=== PATIENT | male | born 1975 | race Caucasian/White ===

== ENCOUNTER 2023-12-29 17:54 | Observation (INO) | payer OTHER, SELFPAY ==
[2023-12-29] VITALS (10 sets, daily range): BP systolic 138–154; BP diastolic 91–101; PULSE 62–90; RESP 16–20; TEMP 36.2–36.9; O2SAT 94–98; BMI 24.2
--- NOTE | 2023-12-29 | CRLHL7_ITS ---
For Patients: As a result of the Cures Act, medical imaging exams and procedure reports are released immediately into your electronic medical record. You may view this report before your referring provider. If you have questions, please contact your health care provider. Indication: FALL, FACIAL TRAUMA Technique: Helical axial sections were obtained through the facial skeleton, mandible and adjacent structures without intravenous contrast material. Comparison: None Findings: No fracture is demonstrated in the facial skeleton or mandible. Mild right forehead scalp contusion. The orbits and their contents are normal in appearance. There is no evidence for penetrating injury to the ocular globes. The lenses are situated in their normally expected anterior locations. No radiodense or metallic foreign body is demonstrated. Air-fluid level in the right frontal sinus. Mild mucosal thickening in the right anterior ethmoid air cells. Mild polypoid mucosal thickening in the maxillary sinuses. Leftward deviation of the nasal septum. The visualized portions of the brain are normal in appearance. Impression: 1. No facial bone fractures. 2. Air-fluid level in the right frontal sinus could represent acute sinusitis. Mild mucosal thickening in the right anterior ethmoid air cells and polypoid mucosal thickening in the maxillary sinuses. Leftward deviation of the nasal septum. 3. Mild right forehead scalp contusion. Please note that all CT scans at this facility use dose modulation, iterative reconstruction, and/or weight-based dosing when appropriate to reduce radiation dose to as low as reasonably achievable. Dictated by Chris Taylor MD @ 12/29/2023 7:05:11 PM (Electronically Signed)
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
--- NOTE | 2023-12-29 18:08 | CRLHL7_ITS ---
For Patients: As a result of the Century Cures Act, medical imaging exams and procedure reports are released immediately into your electronic medical record. You may view this report before your referring provider. If you have questions, please contact your health care provider. Indication: FALL, NECK PAIN Technique: Noncontrast axial CT of the cervical spine with coronal and sagittal reformats are provided. Comparison: No prior studies available for comparison at this institution. Findings: The overall stature, alignment of the cervical spine is within normal limits. No fractures. Prevertebral soft tissues, cervical airway, dens and lateral masses are within normal limits. Mild scattered degenerative changes of the cervical spine. Shallow disc osteophyte complex and severe interspace narrowing at C5-6 with uncovertebral joint hypertrophy. Severe left and moderate right neural foraminal narrowing at C5-6. Uncovertebral joint hypertrophy at C3-4 on the right side. Advanced right facet arthrosis at C3-4 and C4-5. Moderate facet arthrosis at C5-6 bilaterally. Impression: 1. No convincing radiographic evidence of acute osseous injury. 2. Scattered degenerative changes of the cervical spine. Please note that all CT scans at this facility use dose modulation, iterative reconstruction, and/or weight-based dosing when appropriate to reduce radiation dose to as low as reasonably achievable. Dictated by Chris Taylor MD @ 12/29/2023 7:01:08 PM (Electronically Signed)
--- NOTE | 2023-12-29 18:08 | CRLHL7_ITS ---
For Patients: As a result of the Century Cures Act, medical imaging exams and procedure reports are released immediately into your electronic medical record. You may view this report before your referring provider. If you have questions, please contact your health care provider. Indication: FALL, FACIAL TRAUMA Technique: CT of the head without contrast. Coronal and sagittal reformats. Bone and soft tissue windows. Comparison: No prior studies available for comparison at this institution. Findings: No acute intracranial hemorrhage or extra-axial collection. No evidence of acute cortical infarction. No mass effect or midline shift. Normal cerebral volume. The ventricles are normal in size, shape and contour. There is normal ely and white matter differentiation. The orbital contents are normal. No calvarial fractures. No lytic or sclerotic osseous lesions within the calvarium or skull base. Small right forehead scalp contusion. Mastoid air cells are clear. Paranasal sinuses are well aerated. Small air-fluid level in the right frontal sinus. Impression: No acute intracranial abnormality. Please note that all CT scans at this facility use dose modulation, iterative reconstruction, and/or weight-based dosing when appropriate to reduce radiation dose to as low as reasonably achievable. Dictated by Chris Taylor MD @ 12/29/2023 6:57:46 PM (Electronically Signed)
--- NOTE | 2023-12-29 18:09 | CRLHL7_ITS ---
For Patients: As a result of the Century Cures Act, medical imaging exams and procedure reports are released immediately into your electronic medical record. You may view this report before your referring provider. If you have questions, please contact your health care provider. INDICATION: Facial, chest, and clavicle pain after a fall COMPARISON: None. TECHNIQUE: CT of the chest, abdomen, and pelvis with intravenous contrast (79 milliliters Isovue 370). FINDINGS: THORAX: Airways: The trachea and central airways are clear. Lungs: No mass or consolidation. There are several subcentimeter pulmonary nodules largest of which is a 4 millimeter solid right upper lobe nodule (6/29). Pleura: No effusion. Lymph nodes: No bulky thoracic lymphadenopathy. Heart: Normal size. Aorta: Normal caliber. Pulmonary artery: Normal caliber of the main pulmonary artery. Chest wall: Normal. Bones: There are osseous degenerative changes. There is partial ankylosis of T8 and T9 as well as partial ankylosis T10 and T11. There is mild anterior vertebral body wedging centered at T8 and T9. ABDOMEN AND PELVIS: Liver: Smooth hepatic contour. There are 2 cysts in the liver measuring up to 17 millimeters. Gallbladder and biliary tree: Unremarkable CT appearance. Spleen: No splenomegaly. Pancreas: Normal. Adrenal glands: Normal. 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 No hydronephrosis of the right upper pole moiety. There is mild hydronephrosis of the right lower pole moiety. No left-sided hydronephrosis. Left upper renal pole 14 millimeter hypoattenuating indeterminate lesion (5/162). There are a few small left renal subcentimeter hypoattenuating foci which are too small to characterize, but statistically likely to represent cysts. Bladder: Unremarkable CT appearance. Visualized reproductive organs: Unremarkable CT appearance. Gastrointestinal tract: No focal abnormally dilated loops of bowel. Peritoneal cavity: No free fluid or free air. Lymph nodes: No enlarged abdominal or pelvic lymph nodes by CT size criteria. Vessels: No abdominal aortic aneurysm. Abdominal and pelvic wall: Tiny fat containing umbilical hernia. Bones: There are osseous degenerative changes. IMPRESSION: CHEST: 1. No definite acute traumatic findings. 2. Mild anterior vertebral body wedging from T8-T11 which is age indeterminate and may be chronic. Correlate with physical exam. Partial ankylosis of T8-9 and T10-11. 3. Several subcentimeter pulmonary nodules, the largest of which is a 4 millimeter solid right upper lobe nodule. A follow-up low-dose noncontrast CT of the thorax could be considered in 1 year for incidental nodules of this size if patient is considered at high risk of lung cancer. ABDOMEN AND PELVIS: 1. No acute traumatic findings. 2. 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 3. Left upper renal pole 14 millimeter hypoattenuating renal lesion is indeterminate (5/162). Recommend renal ultrasound to further characterize. Please note that all CT scans at this facility use dose modulation, iterative reconstruction, and/or weight-based dosing when appropriate to reduce radiation dose to as low as reasonably achievable. Dictated by Jonas Brown MD @ 12/29/2023 7:12:49 PM (Electronically Signed)
--- NOTE | 2023-12-29 18:15 | ED.NURSE ---
Documentation continued in the EMR at this time. TTA record completed and signed.
[2023-12-29 18:32] LABS: Basophils Absolute Auto 0.03 K/uL (0.00-0.30); Basophils Percent Auto 0.4 % (0.0-3.0); Eosinophils Absolute Auto 0.05 K/uL (0.00-0.50); Eosinophils Percent Auto 0.7 % (0.0-7.0); Hematocrit 49.7 % (37.0-53.0); Hemoglobin* 17.4 gm/dL (13.5-17.5); Immature Granulocytes Abs Auto 0.07 K/uL (0.00-0.30); Immature Granulocytes Pct Auto 0.9 %; Lymphocytes Absolute Auto 1.58 K/uL (0.90-2.90); Lymphocytes Percent Auto 20.5 % (20-44); Mean Corpuscular HGB Conc 35 gm/dL (32-36); Mean Corpuscular Hemoglobin 35 pg (26-34); Mean Corpuscular Volume 100 fL (80-100); Monocytes Percent Auto 10.8 % (0.0-11.0); Neutrophils Absolute Auto 5.13 K/uL (1.7-7.0); Neutrophils Percent Auto 66.7 % (42.0-72.0); Platelet Count* 267 K/uL (140-440); RDW Coefficient of Variation % 12.2 % (11.5-15.5); Red Blood Count 4.97 m/uL (4.30-5.90); White Blood Count* 7.69 K/uL (4.50-11.00)
[2023-12-29 18:35] LABS: Slide Review Reflex No
[2023-12-29 18:52] LABS: Chloride* 100 mmol/L (96-114)
[2023-12-29 18:53] LABS: Albumin* 5.1 g/dL (3.3-5.0); Potassium* 3.4 mmol/L (3.6-5.1); Sodium* 136 mmol/L (135-149)
[2023-12-29] MEDS: ONDANSETRON 2 MG/ML inj 4 MG IVP (18:53)
[2023-12-29] MEDS: MORPHINE 4 MG/ML INJ IVP (18:53)
[2023-12-29 18:56] LABS: Alanine Aminotransferase* 103 U/L (4-50); Alkaline Phosphatase* 79 U/L (40-150); Anion Gap 14 mEq/L (7-15); Aspartate Amino Transferase* 107 U/L (12-35); Blood Urea Nitrogen* 12 mg/dL (5-24); Calcium* 9.7 mg/dL (8.4-10.6); Carbon Dioxide* 22 mmol/L (20-32); Estimated Glomerular Filt Rate 92 ml/min; Glucose* 97 mg/dL (60-115); Total Protein* 8.6 g/dL (6.0-8.3)
[2023-12-29 18:57] LABS: Ethanol* 0.06 % (0.01-0.03)
[2023-12-29 19:36] LABS: Troponin I* < 0.01 ng/mL (0.01-0.04)
[2023-12-29] MEDS: MORPHINE 2 MG/ML inj IVP (19:51)
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
--- NOTE | 2023-12-29 20:36 | ED.NURSE ---
Report to LUZ Ryan, who accepts transfer of patient care. Patient transported to [id number] with all belongings. Pending UA stickers sent with patient.
[2023-12-29 21:23] LABS: Appearance Urine Clear (Clear); Bilirubin Urine Negative (Negative); Blood Urine Negative (Negative); Color Urine Yellow (Yellow); Glucose Urine Negative (Negative); Ketones Urine Negative (Negative); Leukocyte Esterase Urine Negative (Negative); Nitrite Urine Negative (Negative); Protein Urine Negative (Negative); Urobilinogen Urine 0.2 (0.2-1.0); pH Urine 6.5 (5.0-8.5)
[2023-12-29 21:33] LABS: RBC Urine 0-2 (0-2); WBC Urine 0-2 (0-5)
[2023-12-29] MEDS: OXYCODONE 5 MG TABLET PO (22:30)
[2023-12-29] MEDS: THIAMINE 100 MG TABLET PO (22:31)
[2023-12-29] MEDS: GABAPENTIN 300 MG CAPSULE PO (22:31)
[2023-12-29] MEDS: SODIUM CHLORIDE 0.9 % (FLUSH) 10 ML SYRINGE 5 ML IVF (22:32)
[2023-12-29] MEDS: 0.9 % SODIUM CHLORIDE 1000 ml 1,000 ML 125 ML IV (22:32)
[2023-12-29] MEDS: MIRTAZAPINE 15 MG TABLET PO (22:38)
[2023-12-29] MEDS: MORPHINE 4 MG/ML INJ 2 MG IVP (22:58)
[2023-12-30] VITALS (12 sets, daily range): BP systolic 128–140; BP diastolic 80–92; PULSE 65–80; RESP 18–20; TEMP 36.2–36.8; O2SAT 95–98
[2023-12-30] MEDS: MORPHINE 4 MG/ML INJ 2 MG IVP ×2 (00:52→09:49)
[2023-12-30] MEDS: OXYCODONE 5 MG TABLET PO ×4 (03:09→14:26)
[2023-12-30] MEDS: 0.9 % SODIUM CHLORIDE 1000 ml 1,000 ML 125 ML IV (06:24)
--- NOTE | 2023-12-30 06:32 | PC.NURSE ---
Patient admitted to the unit at 2047. Pleasant and cooperative. Pain managed with PRN medications. Ice offered but declined by patient. CIWAs unremarkable. Annmarie collar in place. Q2H neuro checks stable and unremarkable. Contusion to forehead [employer]. Denies N/V/dizziness.
[2023-12-30 06:42] LABS: Hematocrit 43.8 % (37.0-53.0); Hemoglobin* 15.2 gm/dL (13.5-17.5); Mean Corpuscular HGB Conc 35 gm/dL (32-36); Mean Corpuscular Hemoglobin 35 pg (26-34); Mean Corpuscular Volume 101 fL (80-100); Platelet Count* 218 K/uL (140-440); Red Blood Count 4.35 m/uL (4.30-5.90); White Blood Count* 5.65 K/uL (4.50-11.00)
[2023-12-30 06:43] LABS: Slide Review Reflex No
[2023-12-30] MEDS: OMEPRAZOLE 20 MG CAPSULE DR PO (06:53)
[2023-12-30 07:01] LABS: Albumin* 4.1 g/dL (3.3-5.0); Chloride* 103 mmol/L (96-114); Sodium* 135 mmol/L (135-149)
[2023-12-30 07:04] LABS: Alanine Aminotransferase* 74 U/L (4-50); Alkaline Phosphatase* 69 U/L (40-150); Anion Gap 6 mEq/L (7-15); Aspartate Amino Transferase* 67 U/L (12-35); Bilirubin Total* 1.4 mg/dL (0.1-1.5); Blood Urea Nitrogen* 15 mg/dL (5-24); Calcium* 8.8 mg/dL (8.4-10.6); Carbon Dioxide* 26 mmol/L (20-32); Creatinine* 0.8 mg/dL (0.5-1.5); Estimated Glomerular Filt Rate 108 ml/min; Glucose* 108 mg/dL (60-115); Total Protein* 6.8 g/dL (6.0-8.3)
--- NOTE | 2023-12-30 07:46 | CRLHL7_ITS ---
For Patients: As a result of the Century Cures Act, medical imaging exams and procedure reports are released immediately into your electronic medical record. You may view this report before your referring provider. If you have questions, please contact your health care provider. Indication: Fall, neck pain. Technique: Multisequence multiplanar MRI of the cervical spine without the use of intravenous contrast. Comparison: Correlated with CT cervical spine dated 12/29/2023. Findings: Normal vertebral alignment and stature. No T1 hypointense infiltrative lesion. Moderate disc desiccation and height loss at C5-C6 with surrounding Modic type 1 degenerative endplate signal. Faint hyperintensity projecting over the left hemicord at C5-C6 on the sagittal T2 sequence (series 2, image 9) without convincing correlate on other sequences. C2-C3: Symmetric disc bulge. No significant spinal canal or neural foraminal stenosis. C3-C4: Small posterior disc osteophyte complex. No significant spinal canal stenosis. Moderate right and mild left neural foraminal narrowing associated with uncovertebral and facet arthrosis. C4-C5: Symmetric disc bulge. No significant spinal canal stenosis. Moderate-severe right and mild left neural foraminal narrowing associated with uncovertebral and facet arthrosis. C5-C6: Small posterior disc osteophyte complex. No significant spinal canal stenosis. Moderate right and severe left neural foraminal narrowing associated with uncovertebral and facet joint arthrosis. C6-C7: No significant spinal canal or neural foraminal stenosis. C7-T1: No significant spinal canal or neuroforaminal stenosis Impression: 1. Faint hyperintensity projecting over the left hemicord at the C5-C6 level on the sagittal T2 weighted sequence (series 2, image 9), favored to reflect artifact given lack of correlate on axial sequences. If there is clinical concern for cervical myelopathy, a short-term follow-up study could be performed to ensure resolution. 2. At C3-C4, moderate right neural foraminal narrowing. 3. At C4-C5, moderate-severe right neural foraminal narrowing. 4. At C5-C6, moderate right and severe left neural foraminal narrowing. Dictated by Michele Salas MD @ 12/30/2023 12:48:48 PM (Electronically Signed)
[2023-12-30] MEDS: MULTIVITAMIN/MINERALS 1 TABLET 1 TAB PO (09:40)
[2023-12-30] MEDS: FOLIC ACID 1 MG TABLET PO (09:40)
[2023-12-30] MEDS: GABAPENTIN 300 MG CAPSULE PO (09:40)
[2023-12-30] MEDS: ONDANSETRON 2 MG/ML inj 4 MG IVP (09:49)
--- NOTE | 2023-12-30 14:28 | PC.SOCIAL ---
Social work jewelry internship provided pt with resources regarding substance use. Pt will follow up with social work if he has any questions or concerns.
--- NOTE | 2023-12-30 20:21 | PC.NURSE ---
shift note: pt up indept. c-collar in place. IV dc'd intact. Reviewed dc instructions and copies sent with pt. Belongings reviewed and sent with pt. Pt agreed to make f/u appt for PCP.
--- NOTE | 2023-12-31 09:40 | PM.DS1 ---
DS: Providers Provider Date Seen: 12/30/23 Date of admission: 12/29/23 20:44 Primary care physician: Not a Local Provider Admitting Clinician: Jacinda Smith MD Consults: 12/30/23 06:00 Consult to Physician [CONS] Urgent Comment: Consulting Provider: Marisel Lopez Has provider been notified: No Attending Physician on discharge: Jacinda Smith MD DS: Diagnosis Discharge Diagnosis (1) Trauma: Status: Acute Problem details: - fell 8-11ft from roof/ladder, reportedly landing on head, denies LOC, intoxicated - CT head, face, cervical spine, chest/abdomen/pelvis without significant acute traumatic findings - cervical pain with paresthesias into LUE, placed in [place]ie collar with C-spine precautions - pain managed with prn oral Oxycodone, no new or worsening symptoms during stay - General Surgery aware of patient and reviewed by phone, no acute surgical needs identified - discussed Cspine MRI findings with Dr. Coulter of Neurosurgery [facility]), recommends six weeks in collar with outpatient followup in his clinic and plain films at that time (2) Injury of cervical spine: Status: Acute Problem details: - CT C-spine shows no convincing radiographic evidence of acute osseous injury, scattered degenerative changes of the cervical spine noted - symptomatic with neck pain, tingling into L shoulder, some improvement day 1 - remained in [place]ie collar with C-spine precautions during stay - MRI C-spine with possible myelopathy, Neurosurgery consulted by phone with plan abovev (3) Scalp contusion: Status: Acute Problem details: - CT face exhibited no other abnormalities, no concerning bleeding (4) Alcohol use: Status: Acute Problem details: - daily use, minimum three 12 oz beers or low carb drinks, + 2-3 mixed drinks, + 2 or more shots - ETOH in ED 0.06, last drink at 4pm day 12/28 - h/o withdrawal, working out cutting down as an outpatient, partner supportive, declines needs - CIWA negative during stay (5) Depression with anxiety: Status: Acute Problem details: - continue gabapentin and Remeron (6) Wedge fracture of thoracic vertebra: Status: Acute Problem details: - CT shows mild anterior vertebral body wedging from T8-T11 which is age indeterminate and may be chronic. Partial ankylosis of T8-9 and T10-11 - clinically, nontender without c/o pain (7) Pulmonary nodule: Status: Acute Problem details: - incidental finding, patient and partner aware of finding and f/u recommendation (PCP at [place]) - CT shows several subcentimeter pulmonary nodules, largest 4mm solid right upper lobe nodule. 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 Left upper renal pole 14 millimeter hypoattenuating renal lesion is indeterminate (5/162). - outpatient renal ultrasound to further characterize ([place]) DS: Summary Hospital Course Hospital Course: Patient is a 48 yo male who was admitted to the hospital on 12/28 after a fall from height at home while cleaning gutters. Denied LOC, did have neck and L upper shoulder/scapular pain. Imaging in ER overall reassuring but given intoxication and neck pain, placed in Annmarie collar with MRI obtained the following morning (results below). On hospital day 1, patient feeling better, continued to have some neck discomfort (unsure if this was injury or collar related), no arm pain or weakness. MRI results reviewed with Dr. Coulter of Neurosurgery at [facility], who recommends remaining in collar for six weeks with outpatient followup at his clinic for repeat plain films and exam. Status at Discharge Functional status at discharge: independent ambulation Overall status at discharge: patient is progressing back to baseline Time Spent with Patient Time attestation: Total time spent providing and/or coordinating discharge services: Time spent: Greater than 30 minutes Specific discharge activities: Imaging review, consultation to Neurosugery, updates to patient and partner Exam Narrative: Exam Narrative: GEN: Sitting comfortably in bed, nontoxic HEENT: PERRL and EOMIs bilaterally, wearing Ccollar, hemostatic abrasion R forehead CV: RRR R: LCTA bilaterally without wheezing Ext: wwp, full ROM and strength of BUE at the elbow, wrist, fingers. Normal and symmetric lacemaker strength and intrinsic musculature of hands. Const: Vital Signs, click to edit/add: Vital Signs - 24 hr 12/30/23 10:37 12/30/23 10:45 12/30/23 15:00 Temperature 97.5 F L 97.5 F L Pulse Rate [Pulse Oximeter] 72 72 72 Respiratory Rate 18 18 18 Blood Pressure [Ri ght Arm] 140/80 H 140/80 H Pulse Oximetry 98 98 Oxygen Delivery Me thod Room Air Room Air DS: Data Data Completed and Pending Completed studies during hospitalization: For Patients: As a result of the Cures Act, medical imaging exams and procedure reports are released immediately into your electronic medical record. You may view this report before your referring provider. If you have questions, please contact your health care provider. Indication: Fall, neck pain. Technique: Multisequence multiplanar MRI of the cervical spine without the use of intravenous contrast. Comparison: Correlated with CT cervical spine dated 12/29/2023. Findings: Normal vertebral alignment and stature. No T1 hypointense infiltrative lesion. Moderate disc desiccation and height loss at C5-C6 with surrounding Modic type 1 degenerative endplate signal. Faint hyperintensity projecting over the left hemicord at C5-C6 on the sagittal T2 sequence (series 2, image 9) without convincing correlate on other sequences. C2-C3: Symmetric disc bulge. No significant spinal canal or neural foraminal stenosis. C3-C4: Small posterior disc osteophyte complex. No significant spinal canal stenosis. Moderate right and mild left neural foraminal narrowing associated with uncovertebral and facet arthrosis. C4-C5: Symmetric disc bulge. No significant spinal canal stenosis. Moderate-severe right and mild left neural foraminal narrowing associated with uncovertebral and facet arthrosis. C5-C6: Small posterior disc osteophyte complex. No significant spinal canal stenosis. Moderate right and severe left neural foraminal narrowing associated with uncovertebral and facet joint arthrosis. C6-C7: No significant spinal canal or neural foraminal stenosis. C7-T1: No significant spinal canal or neuroforaminal stenosis Impression: 1. Faint hyperintensity projecting over the left hemicord at the C5-C6 level on the sagittal T2 weighted sequence (series 2, image 9), favored to reflect artifact given lack of correlate on axial sequences. If there is clinical concern for cervical myelopathy, a short-term follow-up study could be performed to ensure resolution. 2. At C3-C4, moderate right neural foraminal narrowing. 3. At C4-C5, moderate-severe right neural foraminal narrowing. 4. At C5-C6, moderate right and severe left neural foraminal narrowing. Dictated by Michele Salas MD @ 12/30/2023 12:48:48 PM Discharge Plan Discharge Disposition: Home, Self-Care Date of Admission: 12/29/23 20:44 Attending Provider on Discharge: Ana Laura Mckinney Consulting Providers: Marisel Lopez Primary Care Provider: Provider,Not a Local Discharge Medications: New oxycodone 5 mg Tablet 5 mg PO Q6H PRN (Reason: Pain) Qty: 10 0RF Continued mirtazapine 15 mg tablet 15 mg PO DAILY gabapentin 300 mg capsule 300 mg PO DAILY Discharge Orders: Discharge Order (Routine); Ordered 12/30/23 Ordered By: Tiny Chang Patient Education: Oxycodone, Rapid Release (By mouth), Abuse of Alcohol (DC), Acute Neck Pain (ED) Additional Instructions: Wear the collar for the next 6 weeks. Avoiding strenuous activity. You will need to follow up in the Neurology clinic. You may call the clinic with any questions or concerns, . Activity Level: No strenuous activity Discharge Diet: Regular Follow Up Appointments: [facility] [Outside] (Follow up appointment 6 weeks. [facility] will call you tomorrow (12/30) with the appointment details. If you have not heard from us please call [phone] ) Provider,Not a Local [Primary Care Provider] - (please see your [facility] in 7-10 days for f/u) Forms: Work/School Release, MyHealth Info Instructions Discharge Comments: We were unable to schedule neurology follow up as they were closed. We will schedule this in the AM and call you. If you don't hear from anyone by 12:00pm, please call [phone].
== END 2023-12-30 17:15 | disposition home or self-care (01) ==
LOC: ED 20:18 → MEDSURG 20:44
PROVIDERS: Physician Assistant; Admitting Provider Family Medicine; Emergency Provider Family Medicine; Visit Provider Family Medicine
DX: S14.109A Unspecified injury at unspecified level of cervical spinal cord, initial encounter (principal); S00.03XA Contusion of scalp, initial encounter; F10.929 Alcohol use, unspecified with intoxication, unspecified; R79.89 Other specified abnormal findings of blood chemistry; W13.2XXA Fall from, out of or through roof, initial encounter; Y92.008 Other place in unspecified non-institutional (private) residence as the place of occurrence of the external cause; S22.000A Wedge compression fracture of unspecified thoracic vertebra, initial encounter for closed fracture; G95.89 Other specified diseases of spinal cord; M54.2 Cervicalgia; M25.512 Pain in left shoulder; R51.9 Headache, unspecified; R42 Dizziness and giddiness; H53.8 Other visual disturbances; R11.0 Nausea; F10.939 Alcohol use, unspecified with withdrawal, unspecified; F41.8 Other specified anxiety disorders; R91.1 Solitary pulmonary nodule; N28.9 Disorder of kidney and ureter, unspecified; K21.9 Gastro-esophageal reflux disease without esophagitis; Z87.891 Personal history of nicotine dependence
CPT/HCPCS: 36415; 70450; 70486; 71260; 72125; 72141; 74177; 80053; 81001; 82077; 84484; 85025; 85027; 96361; 96374; 96375; 96376; 99285; 99291; G0378; A9153; A9270; G0390; J2270; J2405; J7030; Q9967

== ENCOUNTER 2024-01-20 12:30 | Observation (INO) | payer OTHER, SELFPAY ==
[2024-01-20] VITALS (39 sets, daily range): BP systolic 114–146; BP diastolic 83–113; PULSE 97–131; RESP 16–20; TEMP 36.6–37.2; O2SAT 93–97; BMI 23.6; BMI 23.3
--- NOTE | 2024-01-20 12:51 | ED.GENADULT ---
HPI - General Adult General Date Seen: 01/20/24 Chief complaint: Alcohol/Intoxication Stated complaint: Neck pain Time Seen by Provider: 01/20/24 12:49 History of Present Illness HPI narrative: 48-year-old male presenting to the ER today with neck pain and also concern for alcohol. Per medical record he saw Dr. Hernandez about 3 weeks ago on 12/28. He had been drinking and fallen off of his roof. CT scan of his cervical spine was normal in the ER. He was admitted for MRI and placed into a [place] collar. Impression: 1. Faint hyperintensity projecting over the left hemicord at the C5-C6 level on the sagittal T2 weighted sequence (series 2, image 9), favored to reflect artifact given lack of correlate on axial sequences. If there is clinical concern for cervical myelopathy, a short-term follow-up study could be performed to ensure resolution. 2. At C3-C4, moderate right neural foraminal narrowing. 3. At C4-C5, moderate-severe right neural foraminal narrowing. 4. At C5-C6, moderate right and severe left neural foraminal narrowing. Patient had a consult placed by the hospitalist at [place] to the neurosurgeon, Dr. Coulter at [facility]. Dr. Coulter recommended collar for 6 weeks with outpatient follow-up in the neurosurgery clinic for repeat plain films and exam. He says since she was discharged the from the hospital he has been having ongoing neck pain predominantly on the left side of the neck. No pain radiating down his arms or room in the rest of his back. No numbness or weakness in his arms or legs. He has a history of alcohol abuse and had been drinking prior to the fall which is what led to it. He has had ongoing alcohol abuse since then. He was given a prescription for oxycodone to use for his neck pain. He had about 30 tablets and use them for about 2 weeks. He ran out of oxycodone last week. Since then he has been self medicating his neck pain by drinking heavy amounts of alcohol. He has been using sporadic Tylenol and ibuprofen but not regularly using that. Because of his heavy alcohol use he is concerned he has an alcohol problem. He he is feeling guilty and worthless about his alcohol use and came here thinking he may need treatment for alcoholism. (of note he had been seen by manager social responsibility during his previous hospitalization and given outpatient resources. He has the pamphlet with him but has not called any treatment centers). He has a little bit vague about how much alcohol he is drinking. He says he goes through at least a bottle per week. His mother says that he has gone through the majority of 2 bottles in the past couple of days. He reports heavy alcohol use for years. He has never been through treatment before. His brother has been through treatment more than 20 times, he says. He has never had significant alcohol withdrawal symptoms or seizures but has never really tried to go through withdrawal before. He has no known history of liver disease. His last drink was a about 11 30 this morning (rum). No other drugs. Related Data Home Medications ?Medication ?Instructions ?Recorded ?Confirmed gabapentin 300 mg capsule 300 mg PO DAILY 12/29/23 12/29/23 mirtazapine 15 mg tablet 15 mg PO DAILY 12/29/23 12/29/23 Previous Rx's ?Medication ?Instructions ?Recorded oxycodone 5 mg tablet 5 mg PO Q6H PRN Pain #10 tabs 12/30/23 Allergies Allergy/AdvReac Type Severity Reaction Status Date / Time No Known Drug Allergies Allergy Verified 12/29/23 18:05 [facility] Medical History (Updated 01/20/24 @ 17:35 by Vishal Balderrama MD) Alcohol use ?Z78.9 - Other specified health status (ICD-10) Injury of cervical spine ?S14.109A - Unspecified injury at unspecified level of cervical spinal cord, initial encounter (ICD-10) Renal lesion ?N28.9 - Disorder of kidney and ureter, unspecified (ICD-10) Pulmonary nodule ?R91.1 - Solitary pulmonary nodule (ICD-10) GERD (gastroesophageal reflux disease) ?K21.9 - Gastro-esophageal reflux disease without esophagitis (ICD-10) Depression with anxiety ?F41.8 - Other specified anxiety disorders (ICD-10) Wedge fracture of thoracic vertebra ?S22.000A - Wedge compression fracture of unspecified thoracic vertebra, initial encounter for closed fracture (ICD-10) Social History What is your current living situation?: I presently have a place to live Problems where you live: no known problems Problems where you live details: n/a In the past 12 months, utilities in danger of being shut off: no In the past 12 mos, have been you worried that your food would run out before you had money to buy more?: never true In the past 12 mos, the food you bought just didn't last and you didn't have money to buy more?: never true Highest level of school completed/degree received: some college, no degree Smoking Status: Former smoker Do you use any of these nicotine containing products: None Second hand tobacco smoke exposure: No How often do you have a drink containing alcohol: 4 or more times a week Alcohol type: beer and hard liquor How many standard drinks containing alcohol do you have on a typical day: 7 to 9 How often do you have six or more drinks on one occasion: Daily or almost daily AUDIT-C Alcohol total score: 11 Non-prescribed substance use: denies use Caffeine: Yes How often does anyone, including family, friends and others, physically hurt you: never How often does anyone, including family, friends and others, insult or talk down to you: never How often does anyone, including family, friends and others, threaten you with harm: never How often does anyone, including family, friends and others, scream or curse at you: never service: Yes Exam Narrative: Exam Narrative: Constitutional: Appears well-developed and well-nourished. Alert. Conversant. Non toxic. HENT: Head: Atraumatic. Nose: Nose normal. Mouth/Throat: Oral mucosa is clear and moist. no trismus. Pharynx normal. Tonsils symmetric. No tonsillar enlargement, erythema, or exudate. Eyes: Conjunctivae normal. EOM normal. Pupils equal, round, and reactive to light. No scleral icterus. Neck: In [place] collar. He did take his own collar off. Evaluation of his neck while the collars off shows no rash. No bruising. No erythema. I did not check range of motion. Neck supple. No tracheal deviation present. Cardiovascular: Normal rate, regular rhythm. No gallop. No friction rub. No murmur heard. Symmetric radial artery pulses Pulmonary/Chest: Effort normal. No stridor. No respiratory distress. No wheezes. No rales. No rhonchi . No tenderness. Abdominal: Soft. Bowel sounds normal. No distension. No mass. No HSM. No tenderness. No rebound. No guarding. Musculoskeletal: RUE: Normal range of motion. No tenderness. No deformity LUE: Normal range of motion. No tenderness. No deformity RLE: Normal range of motion. No edema. No tenderness. No deformity LLE: Normal range of motion. No edema. No tenderness. No deformity Neurological: Alert and oriented to person, place, and time. Normal strength. CN II-VII intact. No sensory deficit. GCS eye subscore is 4. GCS verbal subscore is 5. GCS motor subscore is 6. Normal coordination Skin: Skin is warm and dry. No rash noted. No pallor. Normal capillary refill. Psychiatric: Normal mood. Normal affect. Const: Vital Signs, click to edit/add: Vital Signs - 24 hr 01/20/24 12:38 01/20/24 12:59 01/20/24 13:00 Temperature 98 F Pulse Rate 107 H 106 H Pulse Rate [Pulse Oximeter] 115 H Respiratory Rate 16 Blood Pressure Blood Pressure [Ri ght Upper Arm] 129/99 H Pulse Oximetry 93 96 96 Oxygen Delivery Me thod Room Air 01/20/24 13:01 01/20/24 13:15 01/20/24 15:50 Temperature 98.3 F Pulse Rate 107 H 99 Pulse Rate [Pulse Oximeter] 104 H Respiratory Rate 18 Blood Pressure 146/97 H Blood Pressure [Ri ght Upper Arm] 117/98 H Pulse Oximetry 96 94 94 Oxygen Delivery Me thod Room Air Course Vital Signs Vital signs: Initial Vital Signs Temperature 98 F 01/20/24 12:38 Temperature Source Temporal Artery Scan 01/20/24 12:38 Pulse Rate 115 H 01/20/24 12:38 Respiratory Rate 16 01/20/24 12:38 Blood Pressure 129/99 H 01/20/24 12:38 Blood Pressure Mean 109 H 01/20/24 12:38 Pulse Oximetry 93 01/20/24 12:38 Oxygen Delivery Method Room Air 01/20/24 12:38 Vital Signs Temperature 98 F 01/20/24 12:38 Pulse Rate 115 H 01/20/24 12:38 Respiratory Rate 16 01/20/24 12:38 Blood Pressure 129/99 H 01/20/24 12:38 Pulse Oximetry 93 01/20/24 12:38 Oxygen Delivery Method Room Air 01/20/24 12:38 Temperature 98.3 F 01/20/24 15:50 Pulse Rate 104 H 01/20/24 15:50 Respiratory Rate 18 01/20/24 15:50 Blood Pressure 117/98 H 01/20/24 15:50 Pulse Oximetry 94 01/20/24 15:50 Oxygen Delivery Method Room Air 01/20/24 15:50 Medications Administered Medications: Discontinued Medications Generic Name Dose Route Start Last Admin Trade Name Mary PRN Reason Stop Dose Admin Lorazepam 1 mg 01/20/24 13:30 01/20/24 13:51 Lorazepam 1 Mg Tablet PO 01/20/24 13:31 1 mg ONCE ONE Administration Lorazepam 1 mg 01/20/24 16:21 01/20/24 16:33 Lorazepam 1 Mg Tablet PO 01/20/24 16:22 1 mg ONCE ONE Administration Medical Decision Making MDM Narrative Medical decision making narrative: 48-year-old male with history of alcoholism and alcohol abuse also with recent fall off a ladder leading to a cervical spine injury presenting to the ER today with concern for ongoing neck pain and also ongoing heavy alcohol abuse. 1. Neck pain. He does not have any focal neurologic deficits to suggest cervical spine injury or cervical radiculopathy. With recent MRI showing potential cord lesion, we did repeat a cervical spine MRI with and without contrast today. That MRI shows no evidence for any ongoing cord lesion. And per radiology report they suspect the previous lesion was probably artifact. There is some abnormality/edema affecting the pillar of the right C4-5 articular facet which could be posttraumatic but appears to be improving. No other signs of new cervical disc lesions, fractures, or other foraminal stenosis or cord impingement. At this point I think the patient is safe to remain in his field a few collar. He already has a plan in place with his neurosurgeon to keep the collar place for 6 weeks with a recheck in the neurosurgery clinic. Would have him continue the [place] collar and follow-up as previously planned. 2. Alcohol abuse. Patient does report heavy alcohol abuse and says that he has been drinking heavier than normal lately because he has been self medicating his neck pain. He does want alcohol treatment. He is mildly intoxicated with alcohol here. Also somewhat anxious. Initial CIWA score was 11. Treated with oral Ativan and is feeling slightly better. Laboratory workup shows mildly abnormal transaminases with AST of 147 and ALT of 106. Bilirubins normal. Lipase is normal. Laboratory workup shows an alcohol level of 0.24. With this anion gap is mildly elevated because of alcohol. Sodium and potassium and magnesium are normal. CBC reassuring. He was evaluated by social Work. He is willing to go to treatment. At this point we do think he needs to have some monitored alcohol withdrawal/detox. He is not displaying severe detox requiring admission to ICU. We are looking into getting him placed had [facility] detox. This is currently pending and he has not yet been excepted his summer ovale. Discussed with my partner Dr. Hong at 5:30 p.m.. She will follow up and help determine ultimate disposition. If he is not able to get a bed at [facility], consider admission for monitor detox given the patient's unreliability, and/or discharge home with oral detox. He is feeling somewhat worthless but is not currently having thoughts of self-harm or suicide. Lab Data Labs: Lab Results 01/20/24 Range/Units 13:55 WBC 5.72 (4.50-11.00) K/uL RBC 5.24 (4.30-5.90) m/uL Hgb 18.1 H (13.5-17.5) gm/dL Hct 50.7 (37.0-53.0) % MCV 97 (80-100) fL MCH 35 H (26-34) pg MCHC 36 (32-36) gm/dL RDW Coeff of Joss 11.4 L (11.5-15.5) % Plt Count 257 (140-440) K/uL Neut % (Auto) 66.0 (42.0-72.0) % Lymph % (Auto) 27.6 (20-44) % Republic % (Auto) 5.9 (0.0-11.0) % Eos % (Auto) 0.0 (0.0-7.0) % Baso % (Auto) 0.3 (0.0-3.0) % Neut # (Auto) 3.77 (1.7-7.0) K/uL Lymph # (Auto) 1.58 (0.90-2.90) K/uL Republic # (Auto) 0.30 (0.00-0.90) K/UL Eos # (Auto) 0.00 (0.00-0.50) K/uL Baso # (Auto) 0.02 (0.00-0.30) K/uL Abs Immat Gran (auto) 0.01 (0.00-0.30) K/uL Imm/Tot Granulo (auto) 0.2 % Sodium 141 (135-149) mmol/L Potassium 4.3 (3.6-5.1) mmol/L Chloride 105 (96-114) mmol/L Carbon Dioxide 18 L (20-32) mmol/L Anion Gap 18 H (7-15) mEq/L BUN 11 (5-24) mg/dL Creatinine 0.8 (0.5-1.5) mg/dL Estimated Creat Clear 111.70 Estimated GFR 108 ml/min Glucose 83 (60-115) mg/dL Calcium 9.0 (8.4-10.6) mg/dL Magnesium 2.2 (1.5-2.6) mg/dL Total Bilirubin 1.1 (0.1-1.5) mg/dL AST 147 H (12-35) U/L ALT 106 H (4-50) U/L Alkaline Phosphatase 97 (40-150) U/L Total Protein 8.0 (6.0-8.3) g/dL Albumin 4.9 (3.3-5.0) g/dL Lipase 176 (23-300) U/L Ethyl Alcohol 0.24 H (0.01-0.03) % Imaging Data MRI C spine: Attestation: I have reviewed the pertinent imaging results. Radiologist's impression: Impression: 1. No evidence of acute fracture or ligamentous injury in the cervical spine. 2. Slight reduction in articular pillar edema at the right C4-5 facet joint since the 12/30/2023 MRI, compatible with improving inflammatory/stress reaction. 3. No cord signal abnormality. The previous signal change suggested at the C5-6 cord is not reproduced on the other sequences or on today`s exam, and was compatible with artifact. Discharge Plan Discharge Clinical Impression: Alcoholic intoxication, Alcohol abuse, Injury of neck Prescriptions: No Action mirtazapine 15 mg tablet 15 mg PO DAILY gabapentin 300 mg capsule 300 mg PO DAILY oxycodone 5 mg Tablet 5 mg PO Q6H PRN (Reason: Pain) Qty: 10 0RF Follow Up/Referrals: Provider,Not a Local [Non-Staff] -
--- NOTE | 2024-01-20 13:30 | CRLHL7_ITS ---
For Patients: As a result of the Century Cures Act, medical imaging exams and procedure reports are released immediately into your electronic medical record. You may view this report before your referring provider. If you have questions, please contact your health care provider. Indication: Neck pain, 3 weeks status post fall Technique: Multiplanar, multisequence MRI of the cervical spine obtained without contrast. Comparison: MRI cervical spine 12/30/2023 Findings: The normal cervical lordosis is preserved. No significant spondylolisthesis. Vertebral body heights are maintained. No acute osseous abnormality. Slight reduction in articular pillar edema at the right C4-5 facet joint since the 12/30/2023 MRI. Mild mixed Modic type 1/2 opposing endplate changes at C5-6, stable. Stable small presumed intraosseous hemangiomas within the left T1 and T2 articular pillars. Bone marrow signal is otherwise unremarkable. Included posterior fossa structures are unremarkable. The spinal cord appears normal in course, caliber, and signal. The previously described faint T2 hyperintensity suggested at the C5-6 cord on the prior sagittal T2 sequence is not reproduced on today`s exam or on the remaining sequences, and is compatible with artifact. Other scattered spondylosis, unchanged over the interval. No suspicious findings identified in the paraspinal soft tissues. Impression: 1. No evidence of acute fracture or ligamentous injury in the cervical spine. 2. Slight reduction in articular pillar edema at the right C4-5 facet joint since the 12/30/2023 MRI, compatible with improving inflammatory/stress reaction. 3. No cord signal abnormality. The previous signal change suggested at the C5-6 cord is not reproduced on the other sequences or on today`s exam, and was compatible with artifact. Dictated by Shabnam Jackson MD @ 01/20/2024 3:48:11 PM (Electronically Signed)
[2024-01-20] MEDS: LORazepam 1 MG TABLET PO ×2 (13:51→16:33)
[2024-01-20 14:07] LABS: Basophils Absolute Auto 0.02 K/uL (0.00-0.30); Basophils Percent Auto 0.3 % (0.0-3.0); Hematocrit 50.7 % (37.0-53.0); Hemoglobin* 18.1 gm/dL (13.5-17.5); Immature Granulocytes Abs Auto 0.01 K/uL (0.00-0.30); Immature Granulocytes Pct Auto 0.2 %; Lymphocytes Absolute Auto 1.58 K/uL (0.90-2.90); Lymphocytes Percent Auto 27.6 % (20-44); Mean Corpuscular HGB Conc 36 gm/dL (32-36); Mean Corpuscular Hemoglobin 35 pg (26-34); Mean Corpuscular Volume 97 fL (80-100); Monocytes Percent Auto 5.9 % (0.0-11.0); Neutrophils Absolute Auto 3.77 K/uL (1.7-7.0); Platelet Count* 257 K/uL (140-440); RDW Coefficient of Variation % 11.4 % (11.5-15.5); Red Blood Count 5.24 m/uL (4.30-5.90); White Blood Count* 5.72 K/uL (4.50-11.00)
[2024-01-20 14:09] LABS: Slide Review Reflex No
[2024-01-20 14:35] LABS: Albumin* 4.9 g/dL (3.3-5.0); Chloride* 105 mmol/L (96-114)
[2024-01-20 14:36] LABS: Potassium* 4.3 mmol/L (3.6-5.1); Sodium* 141 mmol/L (135-149)
[2024-01-20 14:38] LABS: Alkaline Phosphatase* 97 U/L (40-150); Anion Gap 18 mEq/L (7-15); Aspartate Amino Transferase* 147 U/L (12-35); Bilirubin Total* 1.1 mg/dL (0.1-1.5); Blood Urea Nitrogen* 11 mg/dL (5-24); Carbon Dioxide* 18 mmol/L (20-32); Creatinine* 0.8 mg/dL (0.5-1.5); Estimated Glomerular Filt Rate 108 ml/min; Lipase* 176 U/L (23-300)
[2024-01-20 14:39] LABS: Alanine Aminotransferase* 106 U/L (4-50); Ethanol* 0.24 % (0.01-0.03); Glucose* 83 mg/dL (60-115); Magnesium* 2.2 mg/dL (1.5-2.6)
--- NOTE | 2024-01-20 16:47 | PC.SOCIAL ---
Social work: Met with pt and mother in room. Pt requested mother stay for visit. Pt states he is interested in in-pt alcohol treatment. [facility] to [facility] with [facility] as he wants the treatment to be covered by his [facility] insurance. He stated he has not had a substance assessment yet. He has all the substance treatment information given to him by [facility] at his previous hospital visit and plans to discuss treatment options with the [facility]. He is requesting detox placement at [facility]. Called [facility] [phone] and spoke with intake to provide initial information. Faxed packet of information to [facility] at fax#[phone]. [facility] to review information and call RN for nurse to nurse and clinical questions. Awaiting decision from [facility] on admit.
[2024-01-20] MEDS: 0.9 % SODIUM CHLORIDE 1000 ml 1,000 ML IV (18:32)
[2024-01-20] MEDS: LORazepam 2 MG/ML inj 1 MG IVP (21:34)
[2024-01-20] MEDS: PHENobarbitaL 260 MG in 0.9 % SODIUM CHLORIDE 100 ml 100 ML 208 MG IVPB (22:18)
--- NOTE | 2024-01-20 23:20 | P.IMHP_ITS ---
Hospitalist- H&P: HPI History of Present Illness Time Seen by Provider: 23:26 Date Seen: 01/21/24 Chief complaint: Neck pain Narrative: Wilton Abrams is a 48 year old male who has a neck injury from a recent fall and has been drinking more heavily due to the pain of it. Brandon's mother, Joy, is here with him today and helps give history. She tells me that he has been drinking since he was a teenager. He tells me that he has been drinking daily for so long that other than when he was in the hospital earlier this month he does not remember a time being sober. He has never been through treatment or had alcohol withdrawal because he is not stopped drinking at all since he was a teenager. He did have a DWI when he was 18. On 12/29/2023 he was on a ladder cleaning his gutters with he fell injuring his neck. He was seen in the ER and admitted to the hospital for an MRI. Due to C-spine injury he was placed in a [place] collar for 6 weeks. He has been using the collar as directed and was taking oxycodone for pain. When he ran out of that he started drinking more heavily due to pain. He recognizes now that alcohol is a problem for him and would like to stop drinking altogether and go through treatment for it. His last drink was 11:00 a.m. this morning. In the last few days he has had occasional episodes of shortness of breath. He denies any fevers or chills, coughs or colds. He has no chest congestion. He denies chest pain. His mom notes that he will sometimes breathe a little bit heavier, but he also seems to be in pain and complains of neck ache and headache. Today he has had a headache and some mid abdominal pain. He denies any urinary symptoms. He denies any changes in stool, melena, hematochezia or vomiting. He has had some nausea with the alcohol withdrawal. Primary care provider: REBEKAH Rodriguez [facility] Review of Systems Status of ROS: Reports: 10 or more systems reviewed and unremarkable except as noted in History and below [facility] Medical History (Updated 01/21/24 @ 00:21 by Maryan Wiggins MD) Injury of cervical spine ?S14.109A - Unspecified injury at unspecified level of cervical spinal cord, initial encounter (ICD-10) Scalp contusion ?S00.03XA - Contusion of scalp, initial encounter (ICD-10) Alcohol use ?Z78.9 - Other specified health status (ICD-10) Renal lesion ?N28.9 - Disorder of kidney and ureter, unspecified (ICD-10) Pulmonary nodule ?R91.1 - Solitary pulmonary nodule (ICD-10) GERD (gastroesophageal reflux disease) ?K21.9 - Gastro-esophageal reflux disease without esophagitis (ICD-10) Depression with anxiety ?F41.8 - Other specified anxiety disorders (ICD-10) Wedge fracture of thoracic vertebra ?S22.000A - Wedge compression fracture of unspecified thoracic vertebra, initial encounter for closed fracture (ICD-10) Social History (Updated 01/20/24 @ 23:23 by Maryan Wiggins MD) Narrative: Lives with significant other and a child. Drinks 8 drinks per day (white claw, beer, cocktails). Denies tobacco or recreational drug use. DWI at age 18. Never tried to stop drinking or been through treatment. Mother, Joy, is with him today. What is your current living situation?: I presently have a place to live Problems where you live: no known problems Problems where you live details: n/a In the past 12 months, utilities in danger of being shut off: no In the past 12 mos, have been you worried that your food would run out before you had money to buy more?: never true In the past 12 mos, the food you bought just didn't last and you didn't have money to buy more?: never true Highest level of school completed/degree received: some college, no degree Smoking Status: Former smoker Do you use any of these nicotine containing products: None Second hand tobacco smoke exposure: No How often do you have a drink containing alcohol: 4 or more times a week Alcohol type: beer and hard liquor How many standard drinks containing alcohol do you have on a typical day: 7 to 9 How often do you have six or more drinks on one occasion: Daily or almost daily AUDIT-C Alcohol total score: 11 Non-prescribed substance use: denies use Caffeine: Yes How often does anyone, including family, friends and others, physically hurt you : never How often does anyone, including family, friends and others, insult or talk down to you: never How often does anyone, including family, friends and others, threaten you with harm: never How often does anyone, including family, friends and others, scream or curse at you: never service: Yes Meds Home Medications and Allergies Home Medications ?Medication ?Instructions ?Recorded ?Confirmed ?Type gabapentin 300 mg capsule 100 mg PO TID 12/29/23 01/20/24 History mirtazapine 15 mg tablet 15 mg PO HS 12/29/23 01/20/24 History acyclovir 200 mg capsule 200 mg PO 5XD PRN 01/20/24 01/20/24 History meloxicam 7.5 mg tablet 15 mg PO DAILY 01/20/24 01/20/24 History cholecalciferol (vitamin D3) 25 25 mcg PO DAILY 01/21/24 01/21/24 History mcg (1,000 unit) capsule (Vitamin D3) hydroxyzine HCl 10 mg tablet 10 mg PO QID PRN 01/21/24 01/21/24 History omeprazole 20 mg capsule,delayed 20 mg PO DAILY 01/21/24 01/21/24 History release Allergies Allergy/AdvReac Type Severity Reaction Status Date / Time No Known Drug Allergies Allergy Verified 12/29/23 18:05 Exam Narrative: Exam Narrative: General: No acute distress. In a [place] collar. Sleepy, able to stay awake for our conversation, oriented x3. HEENT: Normocephalic atraumatic, pupils equally round and reactive to light and accommodation. Oropharynx clear. Mucous membranes are moist. No cervical lymphadenopathy, thyromegaly or carotid bruits. No JVD. Cardiovascular: Tachycardic, regular. No murmurs, gallops, or rubs. Chest: No increased work of breathing. Clear to auscultation bilaterally. No crackles or wheezes. Abdomen: Bowel sounds present. Soft, nondistended, nontender. No hepatosplenomegaly or masses. Extremities: No edema, no cyanosis or clubbing. Skin: No jaundice, no pallor, no rashes. Neuro: Grossly intact. No focal deficits. Moves all extremities. Const: Vital Signs, click to edit/add: Vital Signs - 24 hr 01/20/24 12:38 01/20/24 12:59 01/20/24 13:00 Temperature 98 F Pulse Rate 107 H 106 H Pulse Rate [Pulse Oximeter] 115 H Respiratory Rate 16 Blood Pressure Blood Pressure [Ri ght Upper Arm] 129/99 H Pulse Oximetry 93 96 96 Oxygen Delivery Me thod Room Air 01/20/24 13:01 01/20/24 13:15 01/20/24 15:46 Temperature Pulse Rate 107 H 99 109 H Pulse Rate [Pulse Oximeter] Respiratory Rate Blood Pressure 146/97 H Blood Pressure [Ri ght Upper Arm] Pulse Oximetry 96 94 93 Oxygen Delivery Me thod 01/20/24 15:50 01/20/24 15:50 01/20/24 16:00 Temperature 98.3 F Pulse Rate 107 H 109 H Pulse Rate [Pulse Oximeter] 104 H Respiratory Rate 18 Blood Pressure 124/100 H Blood Pressure [Ri ght Upper Arm] 117/98 H Pulse Oximetry 94 94 94 Oxygen Delivery Me thod Room Air 01/20/24 16:01 01/20/24 17:33 01/20/24 17:35 Temperature Pulse Rate 106 H 117 H 128 H Pulse Rate [Pulse Oximeter] Respiratory Rate Blood Pressure 130/96 H 120/94 H 114/98 H Blood Pressure [Ri ght Upper Arm] Pulse Oximetry 93 95 Oxygen Delivery Me thod 01/20/24 17:36 01/20/24 18:01 01/20/24 18:15 Temperature 97.8 F Pulse Rate 120 H 115 H Pulse Rate [Pulse Oximeter] 117 H Respiratory Rate 20 Blood Pressure 118/83 Blood Pressure [Ri ght Upper Arm] 120/94 H Pulse Oximetry 95 96 95 Oxygen Delivery Me thod Room Air 01/20/24 18:16 01/20/24 18:30 01/20/24 18:31 Temperature Pulse Rate 110 H 121 H 111 H Pulse Rate [Pulse Oximeter] Respiratory Rate Blood Pressure 130/93 H 128/91 H Blood Pressure [Ri ght Upper Arm] Pulse Oximetry 95 93 93 Oxygen Delivery Me thod 01/20/24 18:45 01/20/24 19:00 01/20/24 19:01 Temperature Pulse Rate 99 105 H 116 H Pulse Rate [Pulse Oximeter] Respiratory Rate 20 Blood Pressure 131/90 H Blood Pressure [Ri ght Upper Arm] Pulse Oximetry 93 93 94 Oxygen Delivery Me thod 01/20/24 19:15 01/20/24 19:30 01/20/24 19:31 Temperature Pulse Rate 102 H 122 H 112 H Pulse Rate [Pulse Oximeter] Respiratory Rate Blood Pressure 135/91 H Blood Pressure [Ri ght Upper Arm] Pulse Oximetry 93 93 93 Oxygen Delivery Me thod 01/20/24 19:45 01/20/24 20:00 01/20/24 20:01 Temperature Pulse Rate 102 H 126 H 120 H Pulse Rate [Pulse Oximeter] Respiratory Rate Blood Pressure 131/89 Blood Pressure [Ri ght Upper Arm] Pulse Oximetry 93 97 94 Oxygen Delivery Me thod 01/20/24 20:15 01/20/24 20:16 01/20/24 20:30 Temperature 99.0 F Pulse Rate 121 H 105 H Pulse Rate [Pulse Oximeter] 121 H Respiratory Rate 20 Blood Pressure Blood Pressure [Ri ght Upper Arm] 131/89 Pulse Oximetry 97 97 95 Oxygen Delivery Me thod Room Air 01/20/24 20:31 01/20/24 20:51 01/20/24 20:52 Temperature Pulse Rate 114 H 109 H 114 H Pulse Rate [Pulse Oximeter] Respiratory Rate Blood Pressure 132/92 H 142/98 H Blood Pressure [Ri ght Upper Arm] Pulse Oximetry 94 95 95 Oxygen Delivery Me thod 01/20/24 21:00 01/20/24 21:01 01/20/24 21:15 Temperature Pulse Rate 116 H 119 H 117 H Pulse Rate [Pulse Oximeter] Respiratory Rate Blood Pressure 136/97 H Blood Pressure [Ri ght Upper Arm] Pulse Oximetry 96 95 94 Oxygen Delivery Me thod 01/20/24 21:30 01/20/24 21:31 Temperature Pulse Rate 131 H 110 H Pulse Rate [Pulse Oximeter] Respiratory Rate Blood Pressure 133/92 H Blood Pressure [Ri ght Upper Arm] Pulse Oximetry 95 94 Oxygen Delivery Me thod Hospitalist - H&P: Result Labs Labs: Short CBC 01/20/24 Range/Units 13:55 WBC 5.72 (4.50-11.00) K/uL Hgb 18.1 H (13.5-17.5) gm/dL Hct 50.7 (37.0-53.0) % Plt Count 257 (140-440) K/uL BMP 01/20/24 13:55 Sodium 141 Potassium 4.3 Chloride 105 Carbon Dioxide 18 L BUN 11 Creatinine 0.8 Glucose 83 Calcium 9.0 Liver Function 01/20/24 Range/Units 13:55 Total Bilirubin 1.1 (0.1-1.5) mg/dL AST 147 H (12-35) U/L ALT 106 H (4-50) U/L Alkaline Phosphatase 97 (40-150) U/L Albumin 4.9 (3.3-5.0) g/dL Ordering Physician: Vishal Balderrama M.D. Date of Service: 01/20/24 Procedure(s): MR cervical spine wo con Accession Number(s): [id number] cc: Caro Rodriguez PA-C; Vishal Balderrama M.D.~ For Patients: As a result of the Century Cures Act, medical imaging exams and procedure reports are released immediately into your electronic medical record. You may view this report before your referring provider. If you have questions, please contact your health care provider. Indication: Neck pain, 3 weeks status post fall Technique: Multiplanar, multisequence MRI of the cervical spine obtained without contrast. Comparison: MRI cervical spine 12/30/2023 Findings: The normal cervical lordosis is preserved. No significant spondylolisthesis. Vertebral body heights are maintained. No acute osseous abnormality. Slight reduction in articular pillar edema at the right C4-5 facet joint since the 12/30/2023 MRI. Mild mixed Modic type 1/2 opposing endplate changes at C5-6, stable. Stable small presumed intraosseous hemangiomas within the left T1 and T2 articular pillars. Bone marrow signal is otherwise unremarkable. Included posterior fossa structures are unremarkable. The spinal cord appears normal in course, caliber, and signal. The previously described faint T2 hyperintensity suggested at the C5-6 cord on the prior sagittal T2 sequence is not reproduced on today`s exam or on the remaining sequences, and is compatible with artifact. Other scattered spondylosis, unchanged over the interval. No suspicious findings identified in the paraspinal soft tissues. Impression: 1. No evidence of acute fracture or ligamentous injury in the cervical spine. 2. Slight reduction in articular pillar edema at the right C4-5 facet joint since the 12/30/2023 MRI, compatible with improving inflammatory/stress reaction. 3. No cord signal abnormality. The previous signal change suggested at the C5-6 cord is not reproduced on the other sequences or on today`s exam, and was compatible with artifact. Dictated by Shabnam Jackson MD @ 01/20/2024 3:48:11 PM (Electronically Signed) Assessment and Plan Assessment and plan (1) Alcohol withdrawal: Problem comment: - Admit for observation - Was given lorazepam and one dose of phenobarbital in ER with good effect - Continue CIVA protocol - Thiamine, folate, MVI - Monitor on continuous pulse ox and tele overnight - SW consult Status: Acute (2) Alcohol abuse: Status: Chronic (3) Alcoholic intoxication: Status: Acute (4) Injury of cervical spine: Problem comment: 12/31/23 - CT C-spine shows no convincing radiographic evidence of acute osseous injury, scattered degenerative changes of the cervical spine noted - symptomatic with neck pain, tingling into L shoulder, some improvement day 1 - remained in [place] collar with C-spine precautions during stay - MRI C-spine with possible myelopathy, Neurosurgery consulted by phone with plan above - discussed Cspine MRI findings with Dr. Coulter of Neurosurgery [facility]), recommends six weeks in collar with outpatient followup in his clinic and plain films at that time 01/20/24 - No reinjury. Repeat MRI results above. Continue [place] collar. Continue meloxicam. Status: Chronic Plan - Continue home omeprazole, gabapentin, mirtazapine, meloxicam - with regards to complaint of shortness of breath and mid abdominal pain, I am not finding anything on exam at present and these symptoms do not seem to be a problem at this time. He is not hypoxic or tachypneic. Monitor overnight and if symptoms persist, or if he is able to give more detail tomorrow, further workup can be done at that time.
[2024-01-21] VITALS (17 sets, daily range): BP systolic 110–143; BP diastolic 80–109; PULSE 84–120; RESP 15–20; TEMP 36.4–36.8; O2SAT 92–96
[2024-01-21] MEDS: LORazepam 2 MG/ML inj IVP ×2 (00:53→05:25)
[2024-01-21] MEDS: ONDANSETRON 2 MG/ML inj 4 MG IVP (00:55)
[2024-01-21] MEDS: SODIUM CHLORIDE 0.9 % (FLUSH) 10 ML SYRINGE 5 ML IVF ×2 (05:26→11:11)
--- NOTE | 2024-01-21 06:39 | PC.NURSE ---
End of shift report [id number]: Pleasant and cooperative with cares. Patient is drowsy, easily roused with verbal stimuli and light shaking. CIWA's range from 4-10, PRN lorazepam utilized for CIWA >9 with good results. Reports nausea, has visible hand tremors when extending hands, intermittent sensitivity to light and tachycardic and hypertensive when had increased CIWA. C-collar utilized during the entire shift, denies any neck pain. Bed alarm utilized. Ambulates with SBA.
[2024-01-21] MEDS: OMEPRAZOLE 20 MG CAPSULE DR 40 MG PO (07:05)
[2024-01-21] MEDS: PHENobarbitaL 32.4 MG TABLET 162 MG PO ×2 (07:46→11:10)
[2024-01-21] MEDS: MULTIVITAMIN/MINERALS 1 TABLET 1 TAB PO (07:46)
[2024-01-21] MEDS: FOLIC ACID 1 MG TABLET PO (07:47)
--- NOTE | 2024-01-21 09:25 | PC.SOCIAL ---
Addendum entered and electronically signed by IGNACIA Elizabeth 01/21/24 12:06: Met with pt who is requesting placement at [facility] [place]. Pt is aware this facility is not contracted with [place] for payment but is contracted with [facility] where pt lives. Informed pt that there is the possibility he will be billed by the pending sale to [facility] for payment of detox. He is aware and agrees to this. Pt states he has someone who can give him a ride to detox today. Spoke with Jason at [facility] who confirmed pt has been accepted for admit today. Pt can arrive any time today and needs to call them when he is on his way with anticipated time of arrival. Pt needs to bring his own medications from home. Met with pt again, who is agreeable to all requirements of the detox facility. Provided him with written information on the facility contact phone number [phone] and address [address], [place]. RN aware of arrangements made for detox and that pt will be a voluntary admission there. No additional information is needed by [facility] from the hospital. Original Note: Discharge planning: Called [facility] in [place], [place] [phone]. Faxed packet for assessment for admission to [phone]. Awaiting call back with decision on admit to detox. Pt was agreeable yesterday to transfer to detox facility in [place] if accepted. [facility] was unable to accept pt due to his collar. bed worker to meet again with pt when decision is made on acceptance by [facility] to discuss this option. bed worker to follow up as needed.
--- NOTE | 2024-01-21 11:03 | P.DS_ITS ---
DS: Providers Provider Date Seen: 01/21/24 Date of admission: 01/20/24 22:28 Primary care physician: Caro Rodriguez PA-C Admitting Clinician: Maryan Wiggins MD Attending Physician on discharge: Dilip Garza MD Date of Discharge: 01/21/24 DS: Diagnosis Discharge Diagnosis (1) Alcohol withdrawal: Status: Acute Problem details: Has received lorazepam and phenobarb. Mild withdrawal symptoms. (2) Injury of cervical spine: Status: Chronic Problem details: 12/31/23 - CT C-spine shows no convincing radiographic evidence of acute osseous injury, scattered degenerative changes of the cervical spine noted - symptomatic with neck pain, tingling into L shoulder, some improvement day 1 - remained in cervical collar with C-spine precautions - MRI C-spine with possible myelopathy, Neurosurgery consulted by phone with plan above - discussed Cspine MRI findings with Dr. Coulter of Neurosurgery [facility] recommends six weeks in collar with outpatient followup in his clinic and plain films at that time 01/20/24 - No reinjury. Repeat MRI reassuring. Continue cervical collar for total of 6 weeks, until February 07. Continue meloxicam. (3) Alcohol abuse: Status: Chronic Problem details: Lifelong, no previous attempts at sobriety or treatment (4) GERD (gastroesophageal reflux disease): Status: Chronic Problem details: -continue omeprazole DS: Summary Hospital Course Hospital Course: Wilton Abrams is a 48 year old male with longstanding alcohol use disorder who has a neck injury from a fall on December 29 2023. He was struggling with pain control and drinking heavily to cope. Brandon's mother, Joy, is here with him today and helps give history. She tells me that he has been drinking since he was a teenager. He tells me that he has been drinking daily for so long that other than when he was in the hospital earlier this month he does not remember a time being sober. He has never been through treatment or had alcohol withdrawal because he is not stopped drinking at all since he was a teenager. He did have a DWI when he was 18. On 12/29/2023 he was on a ladder cleaning his gutters with he fell injuring his neck. He was seen in the ER and admitted to the hospital for an MRI. Due to C-spine injury he was placed in a Dolores collar for 6 weeks. He has been using the collar as directed and was taking oxycodone for pain. When he ran out of that he started drinking more heavily due to pain. He recognizes now that alcohol is a problem for him and would like to stop drinking altogether and go through treatment for it. His last drink was 11:00 a.m. this morning. In the emergency department he had repeat MRI of the spine which showed no evidence of severe injury. Recommendation continues to be for 3 more weeks of immobilization through February 07. Ethanol level was 0.24 at about 2:00 p.m. yesterday. He is admitted overnight for management of alcohol withdrawal. He had mildly elevated CIWA score is and received phenobarb and lorazepam. He reports to me today that he is seeking treatment for his alcohol use disorder. Arrangements have been made for him to go voluntarily to [facility] for treatment. He is in agreement with this. Status at Discharge Functional status at discharge: independent ambulation Overall status at discharge: patient is progressing back to baseline Time Spent with Patient Time attestation: Total time spent providing and/or coordinating discharge services: 40 minutes Time spent: Greater than 30 minutes Exam Narrative: Exam Narrative: He is alert and appears in no distress. He gives his own history. No evidence of hallucinations or agitation. Very mild fine tremor in his hands. Respirations are clear to auscultation. Cardiovascular: S1, S2, regular rate and rhythm. Abdomen is soft without tenderness. Const: Vital Signs, click to edit/add: Vital Signs - 24 hr 01/20/24 12:38 01/20/24 12:59 01/20/24 13:00 Temperature 98 F Pulse Rate 107 H 106 H Pulse Rate [Pulse Oximeter] 115 H Respiratory Rate 16 Blood Pressure Blood Pressure [Ri ght Arm] Blood Pressure [Ri ght Upper Arm] 129/99 H Pulse Oximetry 93 96 96 Oxygen Delivery Me thod Room Air 01/20/24 13:01 01/20/24 13:15 01/20/24 15:46 Temperature Pulse Rate 107 H 99 109 H Pulse Rate [Pulse Oximeter] Respiratory Rate Blood Pressure 146/97 H Blood Pressure [Ri ght Arm] Blood Pressure [Ri ght Upper Arm] Pulse Oximetry 96 94 93 Oxygen Delivery Me thod 01/20/24 15:50 01/20/24 15:50 01/20/24 16:00 Temperature 98.3 F Pulse Rate 107 H 109 H Pulse Rate [Pulse Oximeter] 104 H Respiratory Rate 18 Blood Pressure 124/100 H Blood Pressure [Ri ght Arm] Blood Pressure [Ri ght Upper Arm] 117/98 H Pulse Oximetry 94 94 94 Oxygen Delivery Me thod Room Air 01/20/24 16:01 01/20/24 17:33 01/20/24 17:35 Temperature Pulse Rate 106 H 117 H 128 H Pulse Rate [Pulse Oximeter] Respiratory Rate Blood Pressure 130/96 H 120/94 H 114/98 H Blood Pressure [Ri ght Arm] Blood Pressure [Ri ght Upper Arm] Pulse Oximetry 93 95 Oxygen Delivery Me thod 01/20/24 17:36 01/20/24 18:01 01/20/24 18:15 Temperature 97.8 F Pulse Rate 120 H 115 H Pulse Rate [Pulse Oximeter] 117 H Respiratory Rate 20 Blood Pressure 118/83 Blood Pressure [Ri ght Arm] Blood Pressure [Ri ght Upper Arm] 120/94 H Pulse Oximetry 95 96 95 Oxygen Delivery Me thod Room Air 01/20/24 18:16 01/20/24 18:30 01/20/24 18:31 Temperature Pulse Rate 110 H 121 H 111 H Pulse Rate [Pulse Oximeter] Respiratory Rate Blood Pressure 130/93 H 128/91 H Blood Pressure [Ri ght Arm] Blood Pressure [Ri ght Upper Arm] Pulse Oximetry 95 93 93 Oxygen Delivery Me thod 01/20/24 18:45 01/20/24 19:00 01/20/24 19:01 Temperature Pulse Rate 99 105 H 116 H Pulse Rate [Pulse Oximeter] Respiratory Rate 20 Blood Pressure 131/90 H Blood Pressure [Ri ght Arm] Blood Pressure [Ri ght Upper Arm] Pulse Oximetry 93 93 94 Oxygen Delivery Me thod 01/20/24 19:15 01/20/24 19:30 01/20/24 19:31 Temperature Pulse Rate 102 H 122 H 112 H Pulse Rate [Pulse Oximeter] Respiratory Rate Blood Pressure 135/91 H Blood Pressure [Ri ght Arm] Blood Pressure [Ri ght Upper Arm] Pulse Oximetry 93 93 93 Oxygen Delivery Me thod 01/20/24 19:45 01/20/24 20:00 01/20/24 20:01 Temperature Pulse Rate 102 H 126 H 120 H Pulse Rate [Pulse Oximeter] Respiratory Rate Blood Pressure 131/89 Blood Pressure [Ri ght Arm] Blood Pressure [Ri ght Upper Arm] Pulse Oximetry 93 97 94 Oxygen Delivery Me thod 01/20/24 20:15 01/20/24 20:16 01/20/24 20:30 Temperature 99.0 F Pulse Rate 121 H 105 H Pulse Rate [Pulse Oximeter] 121 H Respiratory Rate 20 Blood Pressure Blood Pressure [Ri ght Arm] Blood Pressure [Ri ght Upper Arm] 131/89 Pulse Oximetry 97 97 95 Oxygen Delivery Me thod Room Air 01/20/24 20:31 01/20/24 20:51 01/20/24 20:52 Temperature Pulse Rate 114 H 109 H 114 H Pulse Rate [Pulse Oximeter] Respiratory Rate Blood Pressure 132/92 H 142/98 H Blood Pressure [Ri ght Arm] Blood Pressure [Ri ght Upper Arm] Pulse Oximetry 94 95 95 Oxygen Delivery Me thod 01/20/24 21:00 01/20/24 21:01 01/20/24 21:15 Temperature Pulse Rate 116 H 119 H 117 H Pulse Rate [Pulse Oximeter] Respiratory Rate Blood Pressure 136/97 H Blood Pressure [Ri ght Arm] Blood Pressure [Ri ght Upper Arm] Pulse Oximetry 96 95 94 Oxygen Delivery Me thod 01/20/24 21:30 01/20/24 21:31 01/20/24 22:56 Temperature 97.8 F Pulse Rate 131 H 110 H Pulse Rate [Pulse Oximeter] 97 Respiratory Rate 18 Blood Pressure 133/92 H Blood Pressure [Ri ght Arm] 135/113 H Blood Pressure [Ri ght Upper Arm] Pulse Oximetry 95 94 97 Oxygen Delivery Me thod Room Air 01/20/24 22:56 01/20/24 23:00 01/21/24 00:29 Temperature 97.5 F L Pulse Rate Pulse Rate [Pulse Oximeter] 107 H 105 H Respiratory Rate 20 20 Blood Pressure Blood Pressure [Ri ght Arm] 117/85 Blood Pressure [Ri ght Upper Arm] Pulse Oximetry 96 96 Oxygen Delivery Me thod Room Air Room Air 01/21/24 00:29 01/21/24 00:30 01/21/24 01:30 Temperature 97.5 F L Pulse Rate 107 H Pulse Rate [Pulse Oximeter] 104 H Respiratory Rate 18 Blood Pressure Blood Pressure [Ri ght Arm] 118/89 Blood Pressure [Ri ght Upper Arm] Pulse Oximetry 96 92 Oxygen Delivery Me thod Room Air 01/21/24 02:30 01/21/24 03:00 01/21/24 04:00 Temperature 97.5 F L 97.5 F L 97.5 F L Pulse Rate Pulse Rate [Pulse Oximeter] 93 88 84 Respiratory Rate 15 16 18 Blood Pressure Blood Pressure [Ri ght Arm] 120/86 119/80 116/83 Blood Pressure [Ri ght Upper Arm] Pulse Oximetry 93 93 94 Oxygen Delivery Me thod Room Air Room Air Room Air 01/21/24 05:23 01/21/24 06:25 01/21/24 07:38 Temperature 97.9 F 97.9 F 97.8 F Pulse Rate Pulse Rate [Pulse Oximeter] 112 H 103 H 111 H Respiratory Rate 18 18 18 Blood Pressure Blood Pressure [Ri ght Arm] 143/109 H 110/92 H 135/94 H Blood Pressure [Ri ght Upper Arm] Pulse Oximetry 94 95 92 Oxygen Delivery Me thod Room Air Room Air Room Air 01/21/24 07:42 01/21/24 08:00 01/21/24 09:00 Temperature 97.8 F Pulse Rate Pulse Rate [Pulse Oximeter] 109 H 108 H 94 Respiratory Rate 18 18 16 Blood Pressure Blood Pressure [Ri ght Arm] 135/94 H 143/109 H 122/98 H Blood Pressure [Ri ght Upper Arm] Pulse Oximetry 92 94 94 Oxygen Delivery Me thod Room Air Room Air Room Air 01/21/24 10:04 Temperature Pulse Rate Pulse Rate [Pulse Oximeter] 100 Respiratory Rate 16 Blood Pressure Blood Pressure [Ri ght Arm] 124/91 H Blood Pressure [Ri ght Upper Arm] Pulse Oximetry 94 Oxygen Delivery Me thod Room Air Documenting provider has reviewed patient's vital signs: yes DS: Data Data Completed and Pending Labs on day of discharge: Labs from last 24 hours 01/20/24 13:55 WBC 5.72 RBC 5.24 Hgb 18.1 H Hct 50.7 MCV 97 MCH 35 H MCHC 36 RDW Coeff of Joss 11.4 L Plt Count 257 Neut % (Auto) 66.0 Lymph % (Auto) 27.6 Hutchinson % (Auto) 5.9 Eos % (Auto) 0.0 Baso % (Auto) 0.3 Neut # (Auto) 3.77 Lymph # (Auto) 1.58 Hutchinson # (Auto) 0.30 Eos # (Auto) 0.00 Baso # (Auto) 0.02 Abs Immat Gran (auto) 0.01 Imm/Tot Granulo (auto) 0.2 Sodium 141 Potassium 4.3 Chloride 105 Carbon Dioxide 18 L Anion Gap 18 H BUN 11 Creatinine 0.8 Estimated Creat Clear 111.70 Estimated GFR 108 Glucose 83 Calcium 9.0 Magnesium 2.2 Total Bilirubin 1.1 AST 147 H ALT 106 H Alkaline Phosphatase 97 Total Protein 8.0 Albumin 4.9 Lipase 176 Ethyl Alcohol 0.24 H Imaging MRI C-spine: Radiologist's impression: [place] [address] Diagnostic Imaging Report Patient: Wilton Abrams MR#: [id number] : 1975 Acct:[id number] Loc: ED Service Date: 01/20/[address]: Ordering Physician: Vishal Balderrama M.D. Date of Service: 01/20/24 Procedure(s): MR cervical spine wo con Accession Number(s): [id number] cc: Caro Rodriguez PA-C; Vishal Balderrama M.D.~ For Patients: As a result of the Cures Act, medical imaging exams and procedure reports are released immediately into your electronic medical record. You may view this report before your referring provider. If you have questions, please contact your health care provider. Indication: Neck pain, 3 weeks status post fall Technique: Multiplanar, multisequence MRI of the cervical spine obtained without contrast. Comparison: MRI cervical spine 12/30/2023 Findings: The normal cervical lordosis is preserved. No significant spondylolisthesis. Vertebral body heights are maintained. No acute osseous abnormality. Slight reduction in articular pillar edema at the right C4-5 facet joint since the 12/30/2023 MRI. Mild mixed Modic type 1/2 opposing endplate changes at C5-6, stable. Stable small presumed intraosseous hemangiomas within the left T1 and T2 articular pillars. Bone marrow signal is otherwise unremarkable. Included posterior fossa structures are unremarkable. The spinal cord appears normal in course, caliber, and signal. The previously described faint T2 hyperintensity suggested at the C5-6 cord on the prior sagittal T2 sequence is not reproduced on today`s exam or on the remaining sequences, and is compatible with artifact. Other scattered spondylosis, unchanged over the interval. No suspicious findings identified in the paraspinal soft tissues. Impression: 1. No evidence of acute fracture or ligamentous injury in the cervical spine. 2. Slight reduction in articular pillar edema at the right C4-5 facet joint since the 12/30/2023 MRI, compatible with improving inflammatory/stress reaction. 3. No cord signal abnormality. The previous signal change suggested at the C5-6 cord is not reproduced on the other sequences or on today`s exam, and was compatible with artifact. Dictated by Shabnam Jackson MD @ 01/20/2024 3:48:11 PM Discharge Plan Discharge Disposition: Home, Self-Care Date of Admission: 01/20/24 22:28 Attending Provider on Discharge: Federico Garza Primary Care Provider: Caro Rodriguez Condition: Stable Anticipated Discharge Date/Time: 01/21/24 11:00 Discharge Medications: Continued mirtazapine 15 mg tablet 15 mg PO HS gabapentin 300 mg capsule 100 mg PO TID meloxicam 7.5 mg tablet 15 mg PO DAILY acyclovir 200 mg capsule 200 mg PO 5XD PRN Rx Instructions: space evenly during waking hours omeprazole 20 mg capsule,delayed release(DR/EC) 20 mg PO DAILY cholecalciferol (vitamin D3) [Vitamin D3] 25 mcg (1,000 unit) capsule 25 mcg PO DAILY hydroxyzine HCl 10 mg tablet 10 mg PO QID PRN Discharge Orders: Discharge Order (Routine); Ordered 01/21/24 Ordered By: Federico Garza Patient Education: Alcohol Withdrawal (DC) Additional Instructions: You are being discharged to the hospital for voluntary admission to [facility] detox. Activity Level: No Restrictions and Wear Brace Discharge Diet: Regular Follow Up Appointments: Caro Rodriguez PA-C [Primary Care Provider] - Provider,Not a Local [Non-Staff] - Forms: [employer] Info Instructions
[2024-01-21] MEDS: GABAPENTIN 100 MG CAPSULE PO (11:10)
[2024-01-21] MEDS: THIAMINE 100 MG TABLET 250 MG PO (11:11)
--- NOTE | 2024-01-21 14:41 | PC.NURSE ---
Discharge-- Pt pleasant and cooperative but drowsy pt was discharged to home with plan to voluntarily go to detox with significant other via wheelchair. VSS, though tachycardic at times, and pt is afebrile. SPO2 maintained >94% on RA. Telemetry showed sinus tachycardic and was discontinued. LS CTA. CIWAs 1-5 and no additional ativan was given this shift. He was up to the bathroom with SBA and tolerated it fairly well. Discharge education was provided including diagnosis info, symptoms to report, medications and follow up plan. All questions answered and SL was removed with tip intact.
== END 2024-01-21 13:00 | disposition home or self-care (01) ==
LOC: ED 13:41 → MEDSURG 22:28
PROVIDERS: Admitting Provider Family Medicine; Emergency Provider Emergency Medicine; PCP Physician Assistant; Visit Provider Family Medicine
DX: F10.939 Alcohol use, unspecified with withdrawal, unspecified (principal); S14.109A Unspecified injury at unspecified level of cervical spinal cord, initial encounter; F10.10 Alcohol abuse, uncomplicated; F10.929 Alcohol use, unspecified with intoxication, unspecified; K21.9 Gastro-esophageal reflux disease without esophagitis; M54.2 Cervicalgia
CPT/HCPCS: 36415; 72141; 80053; 82077; 83690; 83735; 85025; 93005; 96361; 96365; 96375; 96376; 99284; 99285; G0378; A9153; A9270; J2060; J2405; J2560; J7030